=== PATIENT | male | born 1970 | race Caucasian/White ===

== ENCOUNTER 2023-12-06 16:40 | Emergency (ER) | payer MEDICARE, MEDICAID, SELFPAY ==
[2023-12-06 17:34] VITALS: BP 159/105; PULSE 81; RESP 18; TEMP 36.9; O2SAT 98; BMI 34.5
--- NOTE | 2023-12-06 17:41 | USR_ITS ---
PROCEDURE INFORMATION: Exam: US Duplex Right Lower Extremity Veins, Limited Exam date and time: 12/06/2023 6:11 PM Age: 53 years old Clinical indication: Pain; Leg, lower; Right; Additional info: Calf pain, on chemo, sent by Dr to R/O dvt TECHNIQUE: Imaging protocol: Real-time duplex ultrasound of the right extremity with 2-D michel scale, color Doppler flow and spectral waveform analysis including responses to compression and other maneuvers (when performed) with image documentation. Limited exam was focused on the right lower extremity veins. COMPARISON: No relevant prior studies available. FINDINGS: Right deep veins: Unremarkable. The common femoral, femoral, proximal profunda femoral, popliteal, posterior tibial and peroneal veins are patent without thrombus. Normal Doppler waveforms. Normal compressibility and/or augmentation response. Superficial veins: Unremarkable. Saphenofemoral junction is patent without thrombus. Soft tissues: Unremarkable. US/[place] [id number] IMPRESSION: No sonographic evidence of deep vein thrombosis.
--- NOTE | 2023-12-06 17:52 | W.ED.EXTPRO ---
HPI - Extremity Problem General: Chief complaint: Extremity Problem,Nontraumatic Stated complaint: Pain in right leg Time Seen by Provider: 12/06/23 17:40 Source: patient and family Mode of arrival: ambulatory Limitations: no limitations History of Present Illness: Patient presents emergency department today accompanied by his for evaluation treatment of right calf pain. Patient states he noticed onset of discomfort on Tuesday and while pain has waxed and waned, has always been continuous. He describes it as a charley horse in the right calf region. He denies any known injury or trauma. Incidentally, patient was diagnosed with lymphoma approximately 5 years ago. He states he receives chemotherapy every . He did notify his oncologist of his right lower extremity discomfort and was encouraged to come to the emergency department for DVT rule out. No SOA or CP reported. Review of Systems General: Reports: 10 or more systems reviewed and unremarkable except in HPI and below Physical Exam Const: COMMON NORMALS: no acute distress, patient oriented x3 and alert HENMT: COMMON NORMALS: normocephalic, atraumatic and hearing grossly normal bilaterally HEAD & SCALP: normocephalic and atraumatic Eye: COMMON NORMALS: Equal, round and reactive pupils present, EOMs intact bilaterally and conjunctivae normal CONJUNCTIVA: Yes conjunctivae normal PUPIL: Yes Equal, round and reactive pupils present Neck/C-Spine: COMMON NORMALS: full ROM and no JVD Lymph: LYMPHATIC: no lymphadenopathy noted Resp: COMMON NORMALS: normal respiratory effort, No retractions and No use of accessory muscles Cardio: COMMON NORMALS: no JVD and regular rate RATE: regular rate Extremity: NARRATIVE EXTREMITY EXAM: Patient is ambulatory and weightbearing. He is tender along the right mid and right lateral calf region. No worsening pain with dorsiflexion of the right foot-Homans negative. Patient is nontender in the popliteal region. No signs of any obvious edema or pitting edema of the right lower extremity compared to the left. No signs of discoloration in the right lower extremity. Neuro: COMMON NORMALS: patient oriented x3 SENSORIUM/ORIENTATION: Yes alert Psych: COMMON NORMALS: mental status grossly normal, Normal thought process present, cooperative and normal affect THOUGHT PROCESS: Normal thought process present Skin: COMMON NORMALS: no rashes or lesions noted and turgor normal GENERAL SKIN EXAM: no rashes or lesions noted and turgor normal Course Vital Signs: Vital signs: Vital Signs Temperature 98.5 F 12/06/23 17:34 Pulse Rate 81 12/06/23 17:34 Respiratory Rate 18 12/06/23 17:34 Blood Pressure 159/105 12/06/23 17:34 Pulse Oximetry 98 12/06/23 17:34 Oxygen Delivery Me thod Room Air 12/06/23 17:34 MDM - Extremity (Nontraumatic) Medical Decision Making Physical examination is relatively benign though he is tender on palpation to the right calf region. He does not show any signs of swelling or edema and no appreciable skin color change. Patient's lab work is unremarkable. He has a stable white count and stable H&H. Ultrasound is negative for signs of DVT. As we do not need to supplement his electrolytes and do not need to start a chronic anticoagulation regimen, patient will be treated with muscle relaxer. He was also encouraged to perform massage, plantar and dorsiflexion of the right foot multiple times throughout the day, and to apply warm heat for 15 to 20 minutes at a time in addition to a prescription for tizanidine which will be provided to his preferred pharmacy to be picked up and continued in the morning. He is encouraged to notify his oncologist that his ultrasound was negative for signs of acute blood clot. He was instructed to return for any color change in the right lower extremity or sudden swelling. Patient verbalizes understanding and agreement to treatment plan. Differential Diagnosis Unlikely herpes zoster, gout, cellulitis, superficial thrombophlebitis, lower extremity edema or deep vein thrombosis of lower extremity Lab Data 12/06/23 17:53 12/06/23 17:53 Radiology Impressions Venous Duplex 12/06/23 17:41 IMPRESSION: No sonographic evidence of deep vein thrombosis. Laboratory Results WBC 5.24 10^3/uL (3.29-11.43) 12/06/23 17:53 RBC 4.76 10^6/uL (3.85-5.65) 12/06/23 17:53 Hgb 14.50 g/dL (11.27-16.99) 12/06/23 17:53 Hct 42.8 % (37-53) 12/06/23 17:53 MCV 89.9 fl (82-101) 12/06/23 17:53 MCH 30.5 pg (27-33) 12/06/23 17:53 MCHC 33.9 g/dL (30-55) 12/06/23 17:53 RDW 14.2 % (12.1-15.1) 12/06/23 17:53 Plt Count 377 10^3/cmm (157-399) 12/06/23 17:53 MPV 9.3 fL (7.4-10.4) 12/06/23 17:53 Neut % (Auto) 52.5 % 12/06/23 17:53 Lymph % (Auto) 36.8 % 12/06/23 17:53 Russell % (Auto) 5.5 % 12/06/23 17:53 Eos % (Auto) 2.9 % 12/06/23 17:53 Baso % (Auto) 0.8 % 12/06/23 17:53 Neut # (Auto) 2.75 10^3/uL (1.8-7.7) 12/06/23 17:53 Lymph # (Auto) 1.9 10^3/uL (0.8-4.8) 12/06/23 17:53 Russell # (Auto) 0.3 10^3/uL (0.2-0.9) 12/06/23 17:53 Eos # (Auto) 0.2 10^3/uL (0.0-0.8) 12/06/23 17:53 Baso # (Auto) 0.0 10^3/uL (0.0-0.1) 12/06/23 17:53 Nucleated RBC % (auto) 0 % 12/06/23 17:53 Nucleated RBCs # 0.0 /100WBC 12/06/23 17:53 Sodium 139 mmol/L (136-145) 12/06/23 17:53 Potassium 3.8 mmol/L (3.5-5.1) 12/06/23 17:53 Chloride 102 mmol/L (98-107) 12/06/23 17:53 Carbon Dioxide 28 mmol/L (22-29) 12/06/23 17:53 Anion Gap 12.8 (5-19) 12/06/23 17:53 BUN 14 mg/dL (6-20) 12/06/23 17:53 Creatinine 0.9 mg/dL (0.7-1.2) 12/06/23 17:53 GFR Calculation 88.3 mL/min (90-130) L 12/06/23 17:53 Glucose 109 mg/dL (65-115) 12/06/23 17:53 Calculated Osmolality 289 mOsm/kg (285-295) 12/06/23 17:53 Calcium 9.4 mg/dL (8.5-10.5) 12/06/23 17:53 Total Bilirubin 0.5 mg/dL (0.15-1.2) 12/06/23 17:53 AST 32 U/L (0-40) 12/06/23 17:53 ALT 83 U/L (0-41) H 12/06/23 17:53 Alkaline Phosphatase 62 U/L (40-130) 12/06/23 17:53 Total Protein 7.3 g/dL (6.6-8.7) 12/06/23 17:53 Albumin 4.1 g/dL (3.5-5.2) 12/06/23 17:53 Globulin 3.2 g/dL (1.3-4.6) 12/06/23 17:53 All radiology interpretation(s) finalized by discharge Discharge Plan Discharge Patient Disposition: Home Clinical Impression: Pain of right calf Condition: Stable Prescriptions: New tizanidine 4 mg tablet 4 mg PO TID PRN (Reason: muscle spasticity) Qty: 30 0RF Discharge Orders: Discharge ED (Routine); Ordered 12/06/23 Ordered By: Rehana Barnard Referrals: Pat,Jackelyn, [employer] MACHINE OPERATOR [Primary Care Provider] - Discharge Diet: Usual diet Discharge Activity: Increase activity as tolerated Patient Instructions: Musculoskeletal Pain (ED) Activity Restrictions/Additional Instructions: Ultrasound today was negative for signs of acute DVT. I also checked your electrolytes to make sure we were not depleted of sodium or potassium and these are found to be normal today. Your overall blood counts are quite good in fact. I am providing you some medication to hopefully help relax this muscle. We encourage you to perform massage, regularly point your toes up and down to help stretch out the calf region and you may apply heat to the area for 15 to 20 minutes, multiple times throughout the day. If you notice any color change in the extremity-especially red or purple or sudden swelling of the right lower leg we do recommend you be seen and reevaluated again. Coding Level of Care Code ED Color Card Maker for Lanette Spencer
[2023-12-06 18:01] LABS: Basophils % 0.8 %; Eosinophils # 0.2 10^3/uL (0.0-0.8); Eosinophils % 2.9 %; Hematocrit 42.8 % (37-53); Lymphocytes # 1.9 10^3/uL (0.8-4.8); Lymphocytes % 36.8 %; Mean Corpuscular HGB Conc 33.9 g/dL (30-55); Mean Corpuscular Hemoglobin 30.5 pg (27-33); Mean Corpuscular Volume 89.9 fl (82-101); Mean Platelet Volume 9.3 fL (7.4-10.4); Monocytes # 0.3 10^3/uL (0.2-0.9); Monocytes % 5.5 %; Neutrophils # 2.75 10^3/uL (1.8-7.7); Neutrophils % 52.5 %; Nucleated Red Blood Cells % 0 %; Platelet Count 377 10^3/cmm (157-399); Red Blood Count 4.76 10^6/uL (3.85-5.65); Red Cell Distribution Width 14.2 % (12.1-15.1); White Blood Count 5.24 10^3/uL (3.29-11.43)
--- NOTE | 2023-12-06 18:35 | PC.NURSE ---
Back to ER from ultrasound, visiting with , Denies needs or complaints
[2023-12-06 18:42] LABS: Alanine Aminotransferase 83 U/L (0-41); Albumin Level 4.1 g/dL (3.5-5.2); Alkaline Phosphatase 62 U/L (40-130); Anion Gap 12.8 (5-19); Aspartate Amino Transferase 32 U/L (0-40); Blood Urea Nitrogen 14 mg/dL (6-20); Calcium 9.4 mg/dL (8.5-10.5); Carbon Dioxide 28 mmol/L (22-29); Chloride 102 mmol/L (98-107); Globulin 3.2 g/dL (1.3-4.6); Glomerular Filtration Rate 88.3 mL/min (90-130); Glucose 109 mg/dL (65-115); Osmolality Calculated 289 mOsm/kg (285-295); Potassium 3.8 mmol/L (3.5-5.1); Sodium 139 mmol/L (136-145); Total Bilirubin 0.5 mg/dL (0.15-1.2); Total Protein 7.3 g/dL (6.6-8.7)
--- NOTE | 2023-12-06 19:14 | PC.NURSE ---
Report to Lashanda DOUGLAS
[2023-12-06] MEDS: tizanidine 4 mg Tablet PO (19:32)
== END 2023-12-06 19:41 | disposition home or self-care (01) ==
PROVIDERS: Emergency Provider Physician Assistant; PCP Nurse Practitioner Family
DX: M79.661 Pain in right lower leg (principal)
CPT/HCPCS: 80053; 85025; 93971; 99284